=== PATIENT | female | born 1985 | race Caucasian/White ===

== ENCOUNTER 2021-03-25 17:09 | Inpatient (IN) | payer OTHER ==
[2021-03-25 17:44] VITALS: BMI 37.8
[2021-03-25] MEDS ORDERED: Ondansetron PF 4 MG/2 ML Vial IVP PRN (18:15)
[2021-03-25] MEDS ORDERED: hydrALAZINE 20 MG/ML VIAL SLOW IVP PRN (18:15)
[2021-03-25] MEDS ORDERED: Promethazine HCl 25 MG/ML VIAL IM PRN (18:15)
[2021-03-25] MEDS ORDERED: Calcium Gluconate 4.6 MEQ in Sodium Chloride 0.9% 100 ML IVPB PRN (18:17)
[2021-03-25] MEDS: Magnesium Sulfate 20 gm/500 ml 20 GM/500 ML BAG IVPB SCH (18:35)
[2021-03-25 18:45] LABS: SARS-CoV-2 NAA Rapid Test Not Detected (NotDetected)
[2021-03-25 19:19] LABS: Amphetamine Not Detected (NotDetected); Barbiturates Screen Not Detected (NotDetected); Benzodiazepine Screen Not Detected (NotDetected); Cocaine Metabolite Screen Not Detected (NotDetected); Methadone Not Detected (NotDetected); Methamphetamine Not Detected (NotDetected); Opiate Screen Not Detected (NotDetected); Oxycodone Screen Not Detected (NotDetected); Phencyclidine (PCP) Not Detected (NotDetected); THC/Cannabinoid Screen Not Detected (NotDetected); Tricyclic Screen Not Detected (NotDetected)
[2021-03-25] MEDS ORDERED: Milk Of Magnesia 30 ML UDCUP PO PRN (20:28)
[2021-03-25] MEDS ORDERED: Bisacodyl 10 MG SUPP PR PRN (20:28)
[2021-03-25] MEDS ORDERED: Boostrix 0.5 ML (Tdap) VIAL IM ONE (20:28)
[2021-03-25] MEDS ORDERED: diphenhydrAMINE 25 MG CAP PO PRN (20:28)
[2021-03-25] MEDS ORDERED: Misoprostol 200 MCG TAB ONE (20:49)
[2021-03-25] MEDS ORDERED: Misoprostol 200 MCG TAB PR SCH (21:00)
[2021-03-25] MEDS: Ibuprofen 800 MG TAB PO SCH (22:12)
[2021-03-25] MEDS: Docusate Calcium (SURFAK) 240 MG CAP PO SCH (22:12)
[2021-03-26] MEDS ORDERED: Acetaminophen 325 MG TAB PO PRN (01:36)
[2021-03-26] MEDS: Magnesium Sulfate 20 gm/500 ml 20 GM/500 ML BAG IVPB SCH (04:50)
[2021-03-26] MEDS ORDERED: Gentamicin 320 MG, Admixture Fee 1 EACH in Sodium Chloride 0.9% 100 ML IVPB SCH (06:00)
[2021-03-26] MEDS: Ampicillin 2 GM in Sodium Chloride 0.9% 100 ML IVPB SCH ×3 (07:36→18:11)
[2021-03-26] MEDS: Docusate Calcium (SURFAK) 240 MG CAP PO SCH ×2 (08:56→22:08)
[2021-03-26] MEDS: Ibuprofen 800 MG TAB PO SCH ×3 (08:56→22:07)
[2021-03-26] MEDS: Prenatal Vitamin 1 TAB PO SCH (08:56)
[2021-03-26] MEDS: Ferrous Sulfate 325 MG TAB PO SCH (17:40)
[2021-03-27] MEDS: Ampicillin 2 GM in Sodium Chloride 0.9% 100 ML IVPB SCH ×2 (00:13→05:37)
[2021-03-27] MEDS: Ibuprofen 800 MG TAB PO SCH ×3 (05:37→19:49)
[2021-03-27] MEDS ORDERED: NIFEdipine XL 30 MG TAB PO SCH (07:45)
[2021-03-27] MEDS: Prenatal Vitamin 1 TAB PO SCH (09:02)
[2021-03-27] MEDS: Docusate Calcium (SURFAK) 240 MG CAP PO SCH ×2 (09:02→21:00)
[2021-03-27] MEDS: Ferrous Sulfate 325 MG TAB PO SCH ×2 (09:04→15:18)
[2021-03-27] MEDS: Nystatin Cream 15 GM TUBE TOP SCH ×2 (09:38→21:00)
[2021-03-28] MEDS: Ibuprofen 800 MG TAB PO SCH (05:53)
[2021-03-28 07:36] VITALS: BP 138/87; TEMP 98.5
[2021-03-28] MEDS: Prenatal Vitamin 1 TAB PO SCH (08:45)
[2021-03-28] MEDS: Nystatin Cream 15 GM TUBE TOP SCH (08:45)
[2021-03-28] MEDS: Ferrous Sulfate 325 MG TAB PO SCH (08:45)
[2021-03-28] MEDS: Docusate Calcium (SURFAK) 240 MG CAP PO SCH (08:45)
[2021-03-28] MEDS ORDERED: NIFEdipine XL 30 MG TAB PO SCH (09:00)
== END 2021-03-28 09:10 | disposition home or self-care (01) | DRG 776 ==
LOC: CSHLD 17:09 → CSHPP 03-26 17:35
PROVIDERS: ADMIT Obstetrics & Gynecology; ATTEND Obstetrics & Gynecology
PROC: 0UC97ZZ Extirpation of Matter from Uterus, Via Natural or Artificial Opening (ICD-10-PCS; principal; 2021-03-26)
DX: O14.15 Severe pre-eclampsia, complicating the puerperium (principal); Z20.822 Contact with and (suspected) exposure to COVID-19; Z87.891 Personal history of nicotine dependence; O86.4 Pyrexia of unknown origin following delivery
CPT/HCPCS: 36415; 80306; 82570; 83735; 84156; 86762; 86850; 86900; 86901; J0290; J1580; J3475; J3490; U0002